=== PATIENT | female | born 1955 | race Caucasian/White ===

== ENCOUNTER 2019-01-12 19:35 | Outpatient (CLI) | payer MEDICARE, OTHER | END 2019-01-13 06:45 | disposition home or self-care (01) | LOC: SLEEP 19:35 | PROVIDERS: ATTEND Family Medicine | DX: G47.33 Obstructive sleep apnea (adult) (pediatric) (principal); R53.82 Chronic fatigue, unspecified; I10 Essential (primary) hypertension; E78.2 Mixed hyperlipidemia; E03.9 Hypothyroidism, unspecified; M54.6 Pain in thoracic spine; L82.1 Other seborrheic keratosis; E55.9 Vitamin D deficiency, unspecified | CPT/HCPCS: 95810 ==